=== PATIENT | female | born 1965 | race Caucasian/White ===

== ENCOUNTER → 2023-10-08 19:08 | Outpatient (REF) | payer BC, SELFPAY | LOC: WDC 19:08 | PROVIDERS: ATTENDING PHYSICIAN Family Medicine | DX: Z12.31 Encounter for screening mammogram for malignant neoplasm of breast (principal) | CPT/HCPCS: 77063; 77067 ==

== ENCOUNTER 2024-05-06 06:17 | Day surgery (SDC) | payer BC, SELFPAY | END 2024-05-06 09:59 | disposition home or self-care (01) | LOC: GI 06:17 | PROVIDERS: ATTENDING PHYSICIAN Specialist | DX: K22.2 Esophageal obstruction (principal); K31.89 Other diseases of stomach and duodenum; R13.10 Dysphagia, unspecified | CPT/HCPCS: 43249; 43239; 88305; 88342 ==

== ENCOUNTER → 2024-10-29 11:49 | Outpatient (REF) | payer BC, SELFPAY | LOC: WDC 11:49 | PROVIDERS: ATTENDING PHYSICIAN Family Medicine | DX: Z12.31 Encounter for screening mammogram for malignant neoplasm of breast (principal) | CPT/HCPCS: 77063; 77067 ==